=== PATIENT | male | born 1970 | race Hispanic/Latino ===

== ENCOUNTER 2020-08-01 03:33 | Emergency (ER) | payer OTHER ==
[~2020-08-01] VITALS: Ht 175.3 cm; Wt 105.2 kg
[2020-08-01 03:43] VITALS: BP 150/110
[2020-08-01 03:48] VITALS: BP 150/110
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
== END 2020-08-01 04:07 | disposition home or self-care (01) ==
LOC: ER 03:33
DX: G89.29 Other chronic pain (principal); M25.561 Pain in right knee
CPT/HCPCS: 99282